=== PATIENT | female | born 1995 | race Asian ===

== ENCOUNTER 2018-07-26 17:01 | Inpatient (IN) | payer OTHER ==
[2018-07-26 17:45] LABS: Urine Appearance Cloudy; Urine Bacteria Absent (Absent); Urine Bilirubin Negative (Negative); Urine Blood 3+ (Negative); Urine Color Yellow; Urine Glucose Negative (Negative); Urine Ketones Negative (Negative); Urine Nitrite Negative (Negative); Urine Protein Negative (Negative); Urine Red Blood Cell 3+(>10/hpf) (Absent); Urine Specific Gravity 1.016 (1.010-1.030); Urine Squamous Epithelial Cell Present (Absent); Urine Urobilinogen Negative (Negative); Urine White Blood Cell Absent (Absent)
[2018-07-26 18:07] LABS: ABS Eosinophils 0.1 10^3/ul (0-0.6); ABS Lymphocytes 1.6 10^3/ul (1.0-4.8); ABS Monocytes 0.6 10^3/ul (0-0.8); ABS Neutrophils 5.8 10^3/ul (1.5-7.7); Eosinophil % 1.2 %; Hematocrit 37 % (35-47); Hemoglobin 12.4 g/dL (12.0-16.0); Lymphocyte % 19.3 %; Mean Corpuscular HGB Conc 33 g/dL (31-36); Mean Corpuscular Hemoglobin 29 pg (27-31); Mean Corpuscular Volume 87 fL (80-97); Mean Platelet Volume 9.4 fL (7.4-10.4); Platelet Count 163 10^3/uL (150-450); Red Cell Distribution Width 14 % (10.5-15); White Blood Count 8.1 10^3/uL (3.5-10.8)
--- NOTE | 2018-07-26 18:25 | ED ---
Psychiatric Complaint - HPI Summary HPI Summary: This pt is a 22 y/o female presenting to [facility] via EMS for SI. Pt reports SI thoughts and plans. She notes one of her plans is to jump off the bridge. Denies HI, auditory and visual hallucinations. PMHx: depression, for which she takes Lexapro. Denies any other PMHx. Denies tobacco, drug, and alcohol use. - History Of Current Complaint Chief Complaint: EDMentalHealth Time Seen by Provider: 07/26/18 17:15 Hx Obtained From: Patient Onset/Duration: Lasting Days, Still Present Timing: Days Severity Currently: Moderate Character: Depressed Aggravating Factor(s): Nothing Alleviating Factor(s): Nothing Associated Signs And Symptoms: Negative: Hallucinating Has Suicidal: Reports: Thoughts, With A Plan Has Homicidal: Denies: Thoughts, With A Plan - Allergies/Home Medications Allergies/Adverse Reactions: Allergies Allergy/AdvReac Type Severity Reaction Status Date / Time No Known Allergies Allergy Verified 07/26/18 17:08 Home Medications: Home Medications Escitalopram * [Lexapro 5 mg (NF)] 5 mg PO DAILY 07/26/18 [History Confirmed 06/10] PMH/Surg Hx/FS Hx/Imm Hx Endocrine/Hematology History: Denies: Hx Diabetes Cardiovascular History: Denies: Hx Hypertension Psychiatric History: Reports: Hx Depression - Surgical History Surgery Procedure, Year, and Place: None Infectious Disease History: No Infectious Disease History: Denies: Traveled Outside the [place] in Last 30 Days - Family History Known Family History: Negative: Cardiac Disease, Hypertension, Diabetes Family History: FHx of depression - Social History Alcohol Use: Occasionally Substance Use Type: Reports: None Smoking Status (MU): Light Every Day Tobacco Smoker Review of Systems Negative: Fever, Chills Psychological: Other - POS: SI thoughts and plan Positive: Depressed. Negative: Other - NEG: HI, auditory or visual hallucinations All Other Systems Reviewed And Are Negative: Yes Physical Exam - Summary Physical Exam Summary: GENERAL: Patient is a well-developed and nourished female who is lying comfortable in the stretcher. Patient is not in any acute respiratory distress. HEAD AND FACE: Normocephalic EYES: PERRLA, EOMI x 2. EARS: Hearing grossly intact. MOUTH: Oropharynx within normal limits. NECK: Supple, trachea is midline, no adenopathy, no JVD, no carotid bruit. CHEST: Symmetric, no tenderness at palpation LUNGS: Clear to auscultation bilaterally. No wheezing or crackles. CVS: Regular rate and rhythm, S1 and S2 present, no murmurs or gallops appreciated. ABDOMEN: Soft, non-tender. Bowel sounds are normal. No abnormal abdominal pulsations. EXTREMITIES: Full ROM in all major joints, no edema, no cyanosis or clubbing. NEURO: Alert and oriented x 3. No acute neurological deficits. Speech is normal and follows commands. SKIN: Dry and warm PSYCH: Positive SI with a plan. No HI. No visual or auditory hallucinations. Triage Information Reviewed: Yes Vital Signs On Initial Exam: Initial Vitals Temp Pulse Resp BP Pulse Ox 98.7 F 79 18 119/85 97 07/26/18 17:05 07/26/18 17:05 07/26/18 17:05 07/26/18 17:05 07/26/18 17:05 Vital Signs Reviewed: Yes Diagnostics - Vital Signs Vital Signs Temp Pulse Resp BP Pulse Ox 07/26/18 17:05 98.7 F 79 18 119/85 97 - Laboratory Lab Results: Lab Results 07/26/18 07/26/18 Range/Units 17:32 18:01 WBC 8.1 (3.5-10.8) 10^3/uL RBC 4.30 (3.70-4.87) 10^6 /uL Hgb 12.4 (12.0-16.0) g/dL Hct 37 (35-47) % MCV 87 (80-97) fL MCH 29 (27-31) pg MCHC 33 (31-36) g/dL RDW 14 (10.5-15) % Plt Count 163 (150-450) 10^3/uL MPV 9.4 (7.4-10.4) fL Neut % (Auto) 71.8 % Lymph % (Auto) 19.3 % [place] % (Auto) 7.3 % Eos % (Auto) 1.2 % Baso % (Auto) 0.4 % Absolute Neuts (auto) 5.8 (1.5-7.7) 10^3/ul Absolute Lymphs (auto) 1.6 (1.0-4.8) 10^3/ul Absolute Monos (auto) 0.6 (0-0.8) 10^3/ul Absolute Eos (auto) 0.1 (0-0.6) 10^3/ul Absolute Basos (auto) 0.0 (0-0.2) 10^3/ul Absolute Nucleated RBC 0.0 10^3/ul Nucleated RBC % 0.0 Urine Color Yellow Urine Appearance Cloudy Urine pH 7.0 (5-9) Ur Specific [place] 1.016 (1.010-1.030) Urine Protein Negative (Negative) Urine Ketones Negative (Negative) Urine Blood 3+ A (Negative) Urine Nitrate Negative (Negative) Urine Bilirubin Negative (Negative) Urine Urobilinogen Negative (Negative) Ur Leukocyte Esterase Negative (Negative) Urine WBC (Auto) Absent (Absent) Urine RBC (Auto) 3+(>10/hpf) A (Absent) Ur Squamous Epith Cells Present A (Absent) Urine Bacteria Absent (Absent) Urine Glucose Negative (Negative) Result Diagrams: 07/26/18 18:01 07/26/18 18:01 Lab Statement: Any lab studies that have been ordered have been reviewed, and results considered in the medical decision making process. Course/Dx - Course Assessment/Plan: Pt is a 22 y/o female presenting to [facility] via EMS for SI thoughts and plan. She is medically cleared. Pt had a mental health evaluation and her case was reviewed by Dr. Connelly, psychiatrist. Per mental health proc tech, Dr. Connelly will admit the pt on a voluntary status to [facility] psychiatric facility with dx major depressive disorder. - Differential Dx/Clinical Impression Provider Diagnosis: Major depressive disorder Discharge - Sign-Out/Discharge Documenting (check all that apply): Patient Departure - Admit to [facility] PSYCH Patient Received Moderate/Deep Sedation with Procedure: No - Discharge Plan Condition: Stable Disposition: PSYCHIATRIC FACILITY-[facility] Referrals: No Primary Care Phys,NOPCP [Primary Care Provider] - - Billing Disposition and Condition Condition: STABLE Disposition: Psychiatric Facility [facility] - Attestation Statements Document Initiated by Scribe: Yes Documenting Scribe: Edel Bunn Provider For Whom Quinten is Documenting (Include Credential): Moris Wahl MD Scribe Attestation: Edel Hurst scribed for Moris Wahl MD on 07/26/18 at 2121. Scribe Documentation Reviewed: Yes Provider Attestation: The documentation as recorded by the Arron juana Bunn accurately reflects the service I personally performed and the decisions made by me, Moris Wahl MD Status of Scribe Document: Viewed
[2018-07-26 18:26] LABS: ALT 13 U/L (7-52); AST 15 U/L (13-39); Albumin 4.1 g/dL (3.2-5.2); Albumin/Globulin Ratio 1.5 (1-3); Alkaline Phosphatase 44 U/L (34-104); Anion Gap 7 mmol/L (2-11); BUN/Creatinine Ratio 18.7 (8-20); Blood Urea Nitrogen 17 mg/dL (6-24); CO2 Carbon Dioxide 25 mmol/L (22-32); Calcium 9.1 mg/dL (8.6-10.3); Chloride 105 mmol/L (101-111); EGFR African American 92.7 (>60); EGFR Non-African American 76.6 (>60); Globulin 2.7 g/dL (2-4); Glucose 95 mg/dL (70-100); Potassium 3.9 mmol/L (3.5-5.0); Sodium 137 mmol/L (135-145); Total Protein 6.8 g/dL (6.4-8.9)
[2018-07-26 18:32] LABS: HCG Pregnancy < 0.60 mIU/mL
[2018-07-26 19:04] LABS: Alcohol < 10 mg/dL (<10); Salicylate < 2.50 mg/dL (<30)
[2018-07-26 19:05] LABS: Acetaminophen < 15 mcg/mL
[2018-07-26 19:15] LABS: TSH (Thyroid Stimulating Horm) 1.57 mcIU/mL (0.34-5.60)
[2018-07-26 21:58] LABS: Urine Benzodiazepine Screen None Detected (None Detect); Urine Opiates Screen None Detected (None Detect)
[2018-07-27] MEDS ORDERED: Acetaminophen TAB* 325 MG PO PRN (00:41)
[2018-07-27] MEDS ORDERED: Al Hydrox/Mg Hydrox/Simet LIQ* 30 ML UDC PO PRN (00:42)
[2018-07-27 08:36] LABS: HDL Cholesterol 66.5 mg/dL
[2018-07-27] MEDS: Multivitamins/Minerals TAB PO SCH (09:01)
[2018-07-27] MEDS: Nicotine* 2MG (FRUIT FLAVOR) GUM PO PRN (09:02)
[2018-07-27] MEDS: Escitalopram * 10 MG TAB PO SCH (09:02)
[2018-07-27] MEDS: Nicotine PATCH 14 MG/24 HR* PATCH TRANSDERM SCH (14:08)
--- NOTE | 2018-07-27 14:58 | HP ---
HISTORY AND PHYSICAL: DATE OF ADMISSION: 07/26/18 PROVIDER: Ilene Harris NP, in Psychiatry. SUPERVISING PHYSICIAN: North Alcazar MD * (DICTATED BY ILENE HARRIS NP) JUSTIFICATION FOR ADMISSION: The patient is in need of 24-hour supervision and care secondary to suicidal ideation. CHIEF COMPLAINT: "I have no sensation of home." HISTORY OF PRESENT ILLNESS: The patient is a 22-year-old single Malian woman with a history of depression, who arrives brought in on a 9.41 by [facility] and is here on a voluntary legal status after revealing to [facility] that she had many multiple plans for how she could end her life. She states she has "had depression" before she came to [facility], but has gotten help in the past. She has had another bout of depression at [employer] and she got help at [facility], but at this time, she has been thinking more specifically about jumping. She is happy with herself for coming here voluntarily here to the hospital. She seesCuca at [facility] and Dr. Misty Trammell also at [facility] as her psychiatrist. In talking with Syed, it is easy to see that she is depressed, she seems confused, she seems to not have a future planned out. 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 She states she does have friends here and in [place] and that she is very social, but she feels depressed and is considering ending her life. PAST PSYCHIATRIC HISTORY: She has been depressed before, her mother knows about that. She has never had a suicide attempt before, but she has been burning her inner arm with cigarettes and has 3 fresh wounds from 3 episodes that appears of burning herself. PAST MEDICAL HISTORY: Unremarkable. She has used [facility] for checkups, but feels as though she is not sick. SUBSTANCE ABUSE: She smokes cigarettes, may be 5 to 6 per day and has been smoking for 4 to 6 years. She does not use drugs or alcohol. SOCIAL HISTORY: She grew up in [place], was raised by her grandparents until approximately age 15. 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 She got her undergraduate degree in [place]. She states she will be going back to [place] in September, but she does not want to. Neither does she seem to want to stay in the [place]. She will be going back to [place] alone as she has no one to share an apartment with or family to return to. 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 She is taking [facility] Bar Exam. We did discuss who she would reach out to should she have problems, she states she prefers to talk to professionals such as her therapist, Cuca and the psychiatrist Misty and her recruitment advertising manager at the [facility] in [place], [place]. REVIEW OF SYSTEMS: The patient reports feeling fatigued. She denies shortness of breath, heat or cold intolerance, chest pain or abdominal pain. She denies neurological symptoms. She denies fevers or changes in weight. PHYSICAL EXAMINATION GENERAL: The patient is a well-developed and nourished female, who appears to be comfortable, sitting in the milieu. She is not in any acute respiratory distress. VITAL SIGNS: On 07/27/18 at 0953, temperature 98.8, pulse 76, respirations 16, O2 sat 100%, blood pressure 109/74. HEENT: Head and Face: Normocephalic. Eyes: PERRLA, EOMI x2. Ears: Hearing grossly intact. Mouth: Oropharynx within normal limits. NECK: Supple. Trachea is midline. No adenopathy. No JVD. No carotid bruits. CHEST: Symmetric. No tenderness at palpation. LUNGS: Clear to auscultation bilaterally. No wheezing or crackles. CVS: Regular rate and rhythm. S1 and S2 present. No murmurs or gallops appreciated. ABDOMEN: Soft and nontender. Bowel sounds are normal. No abnormal abdominal pulsations. EXTREMITIES: Full range of motions in all major joints. No edema. No cyanosis or clubbing. NEURO: Alert and oriented x4. No acute neurological defects. Speech is normal and follows commands. SKIN: Dry and warm. DIAGNOSTIC STUDIES/LAB DATA: Most laboratory data are within normal limits, exceptions include urine is having blood +3, red blood cells are +3, squamous epithelial cells are present. Her toxicology screen is clear. Incidentally, her hemoglobin A1c is 5.3, triglycerides are 70, cholesterol 155, LDL cholesterol 75, HDL cholesterol 66.5. TSH is 1.57. MENTAL STATUS EXAMINATION: Syed is a 5 feet 6 inches, 108 pound young woman with dark hair and eyes that continued to squint at me as she forgot her glasses. She sits appropriately on the bench. She is calm and cooperative. She has a normal rate, tone, and volume to her speech. She does have an accent. She appears dysthymic. She has a full range of affect. She appears to be defensive however. Her thought process is normal. Her thought content is free of delusions. She is not homicidal at this time. She is suicidal. She is not experiencing hallucinations. Her insight is fair. Her judgment is fair. She is alert and oriented x4. DIAGNOSIS: Major depressive disorder. IMPRESSION: Syed is a 22-year-old Malian woman, who comes to the hospital with suicidal ideation following a repeated episode of deep depression. PLAN: The patient is admitted to adult behavioral unit and placed on q.15- minute checks for her own safety. She is encouraged to participate in supportive milieu, individual, and group therapies. Estimated length of stay is 5 to 7 days. We will obtain an MMPI for diagnostic clarification. We will titrate medications to efficacy and monitor for mood and thought content including increasing Lexapro to 10 mg. Discharge planning will include family involvement and outpatient providers. ILENE HARRIS NP [id number]/CPS #: [id number] JUDITH
--- NOTE | 2018-07-27 16:31 | PN ---
BSU: Group Therapy Note - Service Type Service Type: [id number] Group Psychotherapy - Medication Education Group: Patient attended group and presented with flat affect that did not vary with discussion. Although responsive to direct prompts to respond to questions, patient did not engage in spontaneous conversation.
[2018-07-27] MEDS: Nicotine Patch Removal NOTE FOLLOW UP SCH (20:52)
[2018-07-28] MEDS: Nicotine PATCH 14 MG/24 HR* PATCH TRANSDERM SCH (08:15)
[2018-07-28] MEDS: Multivitamins/Minerals TAB PO SCH (08:17)
[2018-07-28] MEDS: Escitalopram * 10 MG TAB PO SCH (08:17)
[2018-07-28] MEDS: Nicotine* 2MG (FRUIT FLAVOR) GUM PO PRN (08:18)
--- NOTE | 2018-07-28 13:06 | CONS ---
PSYCHOLOGICAL REPORT: DATE OF CONSULT: 07/28/18 PROCEDURE CODE: [id number]. REASON FOR REFERRAL: Syed was referred for personality testing in order to help with diagnostic impression with concerns regarding severity of depression as well as possible manic episode. TEST ADMINISTERED: Syed completed the [place] Multiphasic Personality Inventory-2 (MMPI-2), and was given feedback in individual conversation. She has also been seen in the context of cognitive behavioral group psychotherapies led by this junior underwriter on 2 occasions to date. RELEVANT HISTORY: Syed is a 22-year-old single Slov[place] woman, who describes prior historical difficulties with depression with subsequent treatment. She was brought here for evaluation after discussing having suicidal rumination during the therapy session at [facility] on campus. Syed reports having ideation incorporating jumping from a bridge on campus and subsequently was evaluated and admitted on a voluntary basis. 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 To the contrary, she describes feeling as though she is prepared for the exam. She has been studying [employer] and [email or web address] and has graduated with a master's degree in June of this year from [employer]. Her undergraduate studies were in [employer] in [place]. Syed describes good social adjustment to her move to [place] where she has been for approximately 1 year's time and is somewhat ambivalent about prospects of either staying in the [facility] or moving back to her [place]. When pressed this conversation in terms of pros versus cons either, she seems to be leaning towards going back to [place], clarifying that decision making does not bother her and she feels that she is able to do important decision making in an efficient fashion. She denies any recent experiential difficulties, but describes feeling as though her life is meaningless. She denies any recent romantic disappointments or difficulties and describes feeling connected to people in a supportive fashion both at home as well as here. In fact, she describes feeling that she has done a good job of adjusting socially while here attending [employer] regularly and meeting people who are in the community and not just other students on campus. Syed presents with flat and invariable affect. She is relevant and coherent in conversation and is spontaneous in speech. She asked topical questions in programming as well as in individual conversation and when pressed is able to provide some prosocial future plans, but it is quite apparent that she struggles to find meaning in what she does, but is open to conversation about existential concepts and different ideas. TEST RESULTS: Syed provides a distressed profile on this administration of the MMPI-2 having elevated on 3 emotional duress scales to a profound degree (T scores move between 105 and 120). She subsequently elevates all clinical indices, save the masculine-feminine and social introversion indices. Her most prominent elevations occur on the neurotic triad, which incorporate depression ( T = 85) with lesser scores occurring on the somatic scales. She also elevates the schizophrenia scale, but discussion regarding social alienation did not resonate with her. She described feeling unsure of having answered true or false to some of the questions regarding social interaction, which in this case might be somewhat of a misnomer. Further discussion addressed the elevated hypomania scale (T = 80) with Syed describing some difficulties with adequate amounts of sleep, but denied ubaldo insomnia. She describes sleeping 6 hours a night typically, which she feels is not enough, but that she simply wakes up early in the morning and is "awake." She denies any thought- disordered type experiences that can be descriptive of hypomania, but simply describes being "overconfident" at times. Regardless, she does not provide a convincing account of manic or hypomanic symptomatology and is free of any difficulties such as pressured speech or increasing volume in speech. IMPRESSION AND RECOMMENDATIONS: Syed impresses as having good insight regarding etiology of her depression, articulating her experience with feeling life is meaningless despite her important achievements academically to date. She describes herself as a world traveler and was not intimidated by the prospects of moving to [place] to study law, and in fact to the contrary described embracing new experiences and new people. She denies having any romantic attachments or any kind of future narrative regarding anticipation of intimate relationships or family formation events. Further outpatient treatment can perhaps address these issues in terms of attaining a sense of better balance in life and she impresses as having both good insight in terms of cognitive symptoms as well as interest in other people, which points to positive prognostic outcomes. She seems to have begun to clarify her decision regarding whether to stay or go with some satisfaction while here already, describing an inclination to return to her [place] after she takes the bar exam. It is this junior underwriter's impression that Syed experiences an endogenous sort of depression where she struggles with existential concepts and attachment. Although she elevates the hypomania scale, she does not seem to endorse coherence out of symptoms that would support such a diagnostic interpretation. [id number]/CPS #: [id number] MTDD
--- NOTE | 2018-07-28 16:11 | PN ---
Subjective - Subjective Date of Service: 07/28/18 Service Type: 30646 Hosp care 25 min moderate complexity Subjective: Syed assets today that she is an organized and efficient decision maker. There is no room for chit chat with Syed; she is eager to know the plan for discharge and to be given tasks that will make her know that she is attaining goals. I spoke with Nguyen Mcdowell PALEOLOGIST, who indicated that she agreed with Syed's plan to have a structured remainder of her stay. Syed's presentation is complicated because she is extremely logical and able to execute plans and is successful. Still, reading the assessment by Brock Sutton , PhD, it becomes clear that she sees little meeting in her achievements and no vision for her future. Yesterday she was given the assignment to see where she would be in three years. Yesterday she came up with the idea to have a dog and an apartment in [place]. 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 In all of this, she is generally emotionless. The most emotion she showed was when she states, "I am an organized and efficient decision maker," with a small smile and a turn of the head. She also acknowledged that she is always thinking of suicide, but that she feels safe. She observed that it is very safe here. Objective - General Observations Appearance: Neat Appears Stated Age: Yes Stature: Thin Posture: WNL Eye Contact: Average Behavior/Activity: WNL, Stereotyped, Peculiar - Interaction Observations Attitude Towards Examiner: Cooperative, Dismissive Stated Mood: Dysphoric Affect: Flat, Restricted Speech Pattern/Tone: Clear Thought Process: Coherent, [place] Perception: WNL Thought Content: Preoccupation/Ruminations Thought Process: Lethality: Passive Wish, Suicidal Planning Hallucination Type: None Delusion Type: None - Cognitive Function Orientation: A&O x 4 Level of Consciousness: Awake, Alert, Appropriate Cognition: WNL Estimated Intelligence: Above Normal Insight: Difficulty Acknowledging Presence of Psyciatric Problems Judgment Within Normal Limits: No Ability to Make Reasonable Decisions: Mildly Impaired - Medication Compliance Cooperative with Inpatient Medication Regimen: Yes - Group Participation Participates in Group Activities: Yes Assessment - Assessment Merits Inpatient Hospitalization: For Immediate Safety, For Discharge Planning Inpatient DSM-V Dx: F33.2 Clinical Impression: Syed is a 22-year-old [employer] graduate who comes to the hospital following the admission that she is chronically suicidal and that lately these thoughts have increased in specificity of plan culminating in thoughts of jumping from a bridge at [place]. Plan - Plan Treatment Plan: Name: SYED MUNSON Birthdate: 1995 [id number] Syed will have increased Lexapro and interact with others, which has a tendency to make her feel more comfortable. Continued Medication Management: Different Medication Medications: Current Medications Acetaminophen (Tylenol Tab*) 650 mg PO Q4H PRN PRN Reason: PAIN; OR TEMP >101 Al Hydrox/Mg Hydrox/Simethicone (Maalox Plus*) 30 ml PO Q4H PRN PRN Reason: INDIGESTION Escitalopram Oxalate (Lexapro *) 10 mg PO DAILY [facility] Last Admin: 07/28/18 08:17 Dose: 10 mg Multivitamins/Minerals (Theragran/Minerals Tab*) 1 tab PO DAILY [facility] Last Admin: 07/28/18 08:17 Dose: 1 tab Nicotine (Nicotine Patch 14 Mg/24 Hr*) 1 patch TRANSDERM DAILY [facility] Last Admin: 07/28/18 08:15 Dose: 1 patch Nicotine Polacrilex (Nicotine Gum*) 2 mg PO Q2H PRN PRN Reason: CRAVING Last Admin: 07/28/18 08:18 Dose: 2 mg Pharmacy Profile Note (Nicotine Patch Removal Note*) 1 note FOLLOW UP 2100 [facility] Last Admin: 07/27/18 20:52 Dose: 1 note - Discharge Plan Discharge Plan: Outpatient Follow Up Outpatient Program: Counseling/Psych Services at [place]
[2018-07-29] MEDS: Escitalopram * 10 MG TAB PO SCH (08:24)
[2018-07-29] MEDS: Multivitamins/Minerals TAB PO SCH (08:24)
[2018-07-29] MEDS: Nicotine PATCH 14 MG/24 HR* PATCH TRANSDERM SCH (08:26)
[2018-07-29] MEDS: Nicotine Patch Removal NOTE FOLLOW UP SCH ×2 (09:09→20:38)
[2018-07-29] MEDS: Nicotine* 2MG (FRUIT FLAVOR) GUM PO PRN (20:38)
--- NOTE | 2018-07-29 23:28 | PN ---
Subjective - Subjective Date of Service: 07/29/18 Service Type: 86935 Hosp care 15 min low complexity Subjective: Syed has received her study guide for her exam from a friend who visited. Syed is visibly calmed and offers a rare smile. She has been working on her goals and they are appropriate and reasonable and they include support from friends in [facility]. According to collateral data, Syed had, as recently as a month ago, been able to make plans for her future. This supportive environment seems to be helpful for her in rekindling that ability. Objective - General Observations Appearance: Neat Appears Stated Age: Yes Stature: Thin Posture: WNL Eye Contact: Intermittent Behavior/Activity: WNL - Interaction Observations Attitude Towards Examiner: Cooperative, Demanding Stated Mood: Dysphoric Affect: Flat Speech Pattern/Tone: Clear Thought Process: Coherent Perception: WNL Thought Content: WNL Thought Process: Lethality: Passive Wish Hallucination Type: None Delusion Type: None - Cognitive Function Orientation: A&O x 4 Level of Consciousness: Awake, Alert, Appropriate Cognition: WNL Estimated Intelligence: Above Normal Insight: WNL Judgment Within Normal Limits: Yes - Medication Compliance Cooperative with Inpatient Medication Regimen: Yes - Group Participation Participates in Group Activities: Yes Assessment - Assessment Merits Inpatient Hospitalization: For Immediate Safety Inpatient DSM-V Dx: F33.2 Clinical Impression: Syed is a 22-year-old [place]ian [employer] graduate who comes to the hospital following the admission that she is chronically suicidal and that lately these thoughts have increased in specificity of plan culminating in thoughts of jumping from a bridge at [place]. Plan - Plan Treatment Plan: Name: SYED MUNSON Birthdate: 1995 [id number] Syed will have increased Lexapro and interact with others, which has a tendency to make her feel more comfortable. 07/29/18 Syed has improved significantly. She will stay on the unit for the weekend and will be encouraged to engage in less structured leisure activities as well as being provided with work that relates to making goals, finding leisure tie, and other activities. Medications: Current Medications Acetaminophen (Tylenol Tab*) 650 mg PO Q4H PRN PRN Reason: PAIN; OR TEMP >101 Al Hydrox/Mg Hydrox/Simethicone (Maalox Plus*) 30 ml PO Q4H PRN PRN Reason: INDIGESTION Escitalopram Oxalate (Lexapro *) 10 mg PO DAILY [facility] Last Admin: 07/29/18 08:24 Dose: 10 mg Multivitamins/Minerals (Theragran/Minerals Tab*) 1 tab PO DAILY [facility] Last Admin: 07/29/18 08:24 Dose: 1 tab Nicotine (Nicotine Patch 14 Mg/24 Hr*) 1 patch TRANSDERM DAILY [facility] Last Admin: 07/29/18 08:26 Dose: 1 patch Nicotine Polacrilex (Nicotine Gum*) 2 mg PO Q2H PRN PRN Reason: CRAVING Last Admin: 07/29/18 20:38 Dose: 2 mg Pharmacy Profile Note (Nicotine Patch Removal Note*) 1 note FOLLOW UP 2100 [facility] Last Admin: 07/29/18 20:38 Dose: 1 note - Discharge Plan Discharge Plan: Outpatient Follow Up Outpatient Program: Counseling/Psych Services at [place]
[2018-07-30] MEDS: Escitalopram * 10 MG TAB PO SCH (08:28)
[2018-07-30] MEDS: Multivitamins/Minerals TAB PO SCH (08:28)
[2018-07-30] MEDS: Nicotine PATCH 14 MG/24 HR* PATCH TRANSDERM SCH (08:29)
[2018-07-30] MEDS: Nicotine* 2MG (FRUIT FLAVOR) GUM PO PRN ×3 (10:02→18:58)
--- NOTE | 2018-07-30 17:28 | PN ---
Subjective - Subjective Date of Service: 07/30/18 Service Type: 54939 Hosp care 15 min low complexity Subjective: Syed is seen in weekend coverage for NPP, Ilene Harris. The patient is doing a puzzle and appears to be in good spirits. She reports that she's being working on the "existential question" of what it is in life that she wants to keep living for. "This is not easy to answer. What about you? 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 She is tolerating escitalopram well and denies untoward effects. She is future-oriented, stating that her plan is to stay in [place] until September and then return to [facility] and get an apartment somewhere near her mother. She denies SI and is hoping for discharge on Wednesday. Objective - General Observations Appearance: Well Groomed Appears Stated Age: Yes Stature: Thin Posture: WNL Eye Contact: Average Behavior/Activity: WNL - Interaction Observations Attitude Towards Examiner: Cooperative Stated Mood: Euthymic Affect: Full Speech Pattern/Tone: Clear, Appropriate, Normal Volume Thought Process: Coherent Perception: WNL Thought Content: WNL Hallucination Type: None Delusion Type: None - Cognitive Function Orientation: A&O x 4 Level of Consciousness: Awake Cognition: WNL Estimated Intelligence: Above Normal Insight: WNL Judgment Within Normal Limits: Yes - Medication Compliance Cooperative with Inpatient Medication Regimen: Yes - Group Participation Participates in Group Activities: Yes Assessment - Assessment Merits Inpatient Hospitalization: Consolidate Improvements, Pending Safe DC Plan Inpatient DSM-V Dx: F33.2 Clinical Impression: Syed is a 22-year-old [place] [employer] [place] graduate who comes to the hospital following the admission that she is chronically suicidal and that lately these thoughts have increased in specificity of plan culminating in thoughts of jumping from a bridge at [place]. Plan - Plan Treatment Plan: Name: SYED MUNSON Birthdate: 1995 [id number] Syed will have increased Lexapro and interact with others, which has a tendency to make her feel more comfortable. 07/29/18 Syed has improved significantly. She will stay on the unit for the weekend and will be encouraged to engage in less structured leisure activities as well as being provided with work that relates to making goals, finding leisure tie, and other activities. Continued Medication Management: Start Medication Medications: Current Medications Acetaminophen (Tylenol Tab*) 650 mg PO Q4H PRN PRN Reason: PAIN; OR TEMP >101 Al Hydrox/Mg Hydrox/Simethicone (Maalox Plus*) 30 ml PO Q4H PRN PRN Reason: INDIGESTION Escitalopram Oxalate (Lexapro *) 10 mg PO DAILY [facility] Last Admin: 07/30/18 08:28 Dose: 10 mg Multivitamins/Minerals (Theragran/Minerals Tab*) 1 tab PO DAILY [facility] Last Admin: 07/30/18 08:28 Dose: 1 tab Nicotine (Nicotine Patch 14 Mg/24 Hr*) 1 patch TRANSDERM DAILY [facility] Last Admin: 07/30/18 08:29 Dose: 1 patch Nicotine Polacrilex (Nicotine Gum*) 2 mg PO Q2H PRN PRN Reason: CRAVING Last Admin: 07/30/18 14:24 Dose: 2 mg Pharmacy Profile Note (Nicotine Patch Removal Note*) 1 note FOLLOW UP 2100 [facility] Last Admin: 07/29/18 20:38 Dose: 1 note - Discharge Plan Discharge Plan: Outpatient Follow Up Outpatient Program: Counseling/Psych Services at [place]
[2018-07-30] MEDS: Nicotine Patch Removal NOTE FOLLOW UP SCH (22:30)
[2018-07-31] MEDS: Nicotine PATCH 14 MG/24 HR* PATCH TRANSDERM SCH (08:54)
[2018-07-31] MEDS: Multivitamins/Minerals TAB PO SCH (08:54)
[2018-07-31] MEDS: Escitalopram * 10 MG TAB PO SCH (08:54)
[2018-07-31] MEDS: Nicotine* 2MG (FRUIT FLAVOR) GUM PO PRN (13:01)
[2018-07-31] MEDS: Nicotine Patch Removal NOTE FOLLOW UP SCH (21:31)
[2018-08-01] MEDS: Escitalopram * 10 MG TAB PO SCH (08:44)
[2018-08-01] MEDS: Nicotine PATCH 14 MG/24 HR* PATCH TRANSDERM SCH (08:44)
[2018-08-01] MEDS: Multivitamins/Minerals TAB PO SCH (08:46)
[2018-08-01 11:20] VITALS: BP 110/68
[2018-08-01] MEDS: Nicotine* 2MG (FRUIT FLAVOR) GUM PO PRN (12:41)
--- NOTE | 2018-08-02 16:19 | DS ---
CC: [facility] * DISCHARGE SUMMARY: DATE OF ADMISSION: 07/26/18 DATE OF DISCHARGE: 08/01/18 PROVIDER: Ilene Harris NP, in Psychiatry. SUPERVISING PHYSICIAN: Dr. North Alcazar.* (DICTATED BY SPRING [facility]KET[facility]) DIAGNOSIS: Major depressive disorder, recurrent, severe. CONDITION AT THE TIME OF DISCHARGE: Syed is improved. She is psychiatrically cleared and stable. She participated in groups and was social with peers. Her family was not notified of her presence on this unit. She did well here psychiatrically. She tolerated the increase in Lexapro very well and she will be returning to [facility]. MENTAL STATUS EXAMINATION: At the time of discharge, Syed is calm, cooperative, and makes good eye contact. She is alert and oriented x3. Her grooming is excellent. Her speech pace is normal. Her thought processes are logical. She is not psychotic or delusional. She denies AH, VH, SI, and HI. Her insight is fair. Her judgment is good. She is willing to follow up and urged to see her therapist. DISCHARGE INSTRUCTIONS TO THE PATIENT: A. Medications: She is taking Lexapro 10 mg daily. I dispensed #30. B. Diet is regular. C. Activities are as tolerated. She declined a referral to the [place] [employer] at this time. If she decides to access this free service in the future, she can contact the Quitline toll-free at [phone]. There are no studies pending at the time of discharge. D. Followup care: She has an appointment at [facility] with Jenise Lee, PhD, on 08/01/18 at 3 p.m. She will then be scheduled to see her new therapist , Sawyer Gonzalez PsyD. E. Disposition: Syed is being discharged back to her apartment. F. Substance abuse followup is not indicated. HOSPITAL COURSE: Part A: Chief complaint: "I have no sensation of home." The patient is a 22-year-old single [place] woman with a history of depression who arrives brought in on a 9.41 status from [place] by ambulance and is here on a voluntary legal status after revealing to [facility] that she had many multiple plans for how she could end her life. She states she has "had depression" before she came to the [facility], but has gotten help in the past. She has had another bout of depression at [place] and she got help at [facility], but at this time, she has been thinking more specifically about jumping. She is happy with herself for coming here voluntarily to the hospital. She sees Cuca at [facility] and Dr. Misty Trammell also at [facility] for her psychiatrist. In talking with Syed, it is easy to see that she is depressed. She seems confused. She seems to not have a future planned out. For example, when asked what she was doing after she finished her bar exam, she stated she did not know and that she thought she would probably go back to [facility] and may be get an apartment because she thinks that is what she is supposed to be doing. She states she does have friends here and in [facility] and that she is very social, but she feels depressed and is considering ending her life. Part B: Psychiatric treatment was rendered. Syed was admitted to the adult behavioral unit and placed on 15-minute checks for safety. She did advance to 30- minute checks and staff pass privileges. She did well on the unit, discovering that she enjoys drawing, that she can tolerate increase to 10 mg of Lexapro. She went to groups and she interacted with peers well. She accurately reflected that she interacts with others effectively and that she easily makes friends. She did also reflect that it did not completely feel like she was connected to them. Lexapro was increased from 5 to 10 mg and that was all she was taking, so no other changes were made. There were no consults entered for Syed, but she is future- oriented, she is much improved. Her interest seems to have improved a bit. Her energy is better. She can concentrate more effectively. Her appetite improved. She has less psychomotor retardation and she is no longer suicidal. ILENE HARRIS, MERCEDES [id number]/CPS #: [id number] JUDITH
== END 2018-08-01 13:55 | disposition home or self-care (01) | DRG 885 ==
LOC: ED 17:01 → BSU 20:55
PROVIDERS: ADMIT Psychiatry & Neurology Psychiatry; ATTEND Psychiatry & Neurology Psychiatry
DX: F33.2 Major depressive disorder, recurrent severe without psychotic features (principal); R45.851 Suicidal ideations; F17.210 Nicotine dependence, cigarettes, uncomplicated; Z79.899 Other long term (current) drug therapy
CPT/HCPCS: 36415; 80053; 80061; 80307; 80320; 80329; 81003; 81015; 83036; 84443; 84702; 85025; 90853; 96130; 99222; 99231; 99232; 99238; 99284; A9270-GY; G0480